=== PATIENT | female | born 1975 | race Caucasian/White ===

== ENCOUNTER 2017-10-08 15:17 | Emergency (ER) | payer SELFPAY ==
[~2017-10-08] VITALS: Ht 157.5 cm; Wt 65.8 kg
--- NOTE | 2017-10-08 15:17 | NUR ---
[facility]RA [employer] AND [employer] FROM HOME FOR SUICIDAL IDEATION, PT WANTED TO REMOVE HER PACEMAKER, ABOUT 4CM SUPERFICIAL CUT TO L CHEST WALL, NAD NOTED, VSS, PT PUT ON HOSPITAL GOWN AND MONITOR, WAITING FOR MD REYEZ
[2017-10-08] MEDS ORDERED: HALOPERIDOL LACTATE INJ 5 MG/ML VIAL IM ONE ×3 (15:30→18:30)
[2017-10-08] MEDS ORDERED: HALOPERIDOL LACTATE INJ 5 MG/ML VIAL ONE ×3 (15:33→18:31)
[2017-10-08 16:35] LABS: BASOPHILS # (AUTO) 0.1 /CMM (0.0-0.2); BASOPHILS % (AUTO) 0.5 % (0.0-2.0); EOSINOPHILS % (AUTO) 0.4 % (0.0-6.0); HEMATOCRIT 35 % (33-45); HEMOGLOBIN 11.7 g/dL (11.5-14.8); LYMPHOCYTES # (AUTO) 2.9 /CMM (0.8-4.8); MEAN CORPUSCULAR HEMOGLOBIN 30 PG (26.0-33.0); MEAN CORPUSCULAR HGB CONC 34 g/dl (31.0-36.0); MEAN CORPUSCULAR VOLUME 89 fL (82-100); MONOCYTES # (AUTO) 0.5 /CMM (0.1-1.30); MONOCYTES % (AUTO) 4.9 % (2.0-12.0); NEUTROPHILS # (AUTO) 6.9 /CMM (1.8-8.9); NEUTROPHILS % (AUTO) 66.2 % (43.0-81.0); PLATELET COUNT (AUTO) 403 /CMM (150-450); RDW COEFFICIENT OF VARIATION 13.8 (11.5-15.0); RED BLOOD CELL COUNT(AUTO) 3.89 MIL/uL (4.0-5.2); WHITE BLOOD COUNT (AUTO) 10.4 K/uL (4.3-11.0)
[2017-10-08 16:37] LABS: APPEARANCE,URINE Slightly Cloudy (CLEAR); BILIRUBIN,URINE Negative (NEGATIVE); BLOOD, URINE Negative Ery/uL (NEGATIVE); COLOR,URINE Light yellow (YELLOW); KETONES,URINE Negative (NEGATIVE); LEUKOCYTE ESTERASE ,URINE Negative (NEGATIVE); NITRITE, URINE Negative (NEGATIVE); PROTEIN,URINE Negative (NEGATIVE); UGLUCOSE Negative (NEGATIVE); UROBILINOGEN,URINE 0.2 EU/dL (0.2)
[2017-10-08 16:49] LABS: INR 0.94 (0.87-1.13); PROTHROMBIN TIME 9.8 SECS (9.5-12.7)
[2017-10-08 16:50] LABS: ALANINE AMINOTRANSFERASE 34 U/L (12-78); ALBUMIN 2.9 g/dL (3.4-5.0); ALCOHOL, BLOOD 296 mg/dL (0-0); ALKALINE PHOSPHATASE 55 U/L (46-116); ASPARTATE AMINOTRANSFERASE 34 U/L (15-37); BILIRUBIN,DIRECT 0.1 mg/dL (0.0-0.2); BILIRUBIN,TOTAL 0.2 mg/dL (0.2-1.0); CALCIUM, SERUM 8.1 mg/dL (8.5-10.1); CARBON DIOXIDE 26 mmol/L (21-32); CHLORIDE 109 mmol/L (98-107); CREATININE 0.8 mg/dL (0.6-1.3); GLUCOSE 105 mg/dL (74-106); POTASSIUM 3.4 mmol/L (3.5-5.1); SALICYLATE 4.6 mg/dL (2.8-20.0); SODIUM SERUM 144 mmol/L (136-145); TOTAL PROTEIN, SERUM 6.3 g/dL (6.4-8.2); UREA NITROGEN, BLOOD 7 mg/dL (7-18)
[2017-10-08 16:52] LABS: ACETAMINOPHEN < 2 ug/ml (10-30)
[2017-10-08] MEDS ORDERED: IV NS 0.9% 1,000 ML BAG IV ONE (17:00)
[2017-10-08 17:36] LABS: THYROID STIMULATING HORMONE 0.464 uIU/mL (0.358-3.74)
--- NOTE | 2017-10-08 18:30 | NUR ---
RECEIVED REPORT FROM ARMEN HUFF FOR MARISEL.
--- NOTE | 2017-10-08 19:07 | NUR ---
pt placed on a bedpan.
--- NOTE | 2017-10-08 20:07 | NUR ---
CALLED [employer] NON EMERGENCY DISPATCH. THEY WILL BE SENDING A UNIT.
--- NOTE | 2017-10-08 22:20 | NUR ---
Patient is resting comfortably in bed with eyes closed. Easily aroused. VSS
--- NOTE | 2017-10-09 03:05 | NUR ---
[employer] AT BEDSIDE FOR REPORT
--- NOTE | 2017-10-09 03:42 | NUR ---
Art, FINAL ASSEMBLY INSPECTOR called for psych eval.
[2017-10-09] MEDS ORDERED: ACETAMINOPHEN ES 500 MG TABLET ONE (04:41)
[2017-10-09] MEDS ORDERED: ACETAMINOPHEN 325 MG TABLET PO ONE (05:00)
--- NOTE | 2017-10-09 05:04 | NUR ---
ART AT BEDSIDE FOR EVAL.
--- NOTE | 2017-10-09 05:24 | NUR ---
PER ART PT CLEARED TO BE DC
--- NOTE | 2017-10-09 05:50 | NUR ---
DR. GOMEZ AT BEDSIDE SPEAKING TO PT REGARDING RESULTS
--- NOTE | 2017-10-09 05:52 | NUR ---
IV removed. Catheter intact and site benign. Pressure and 4x4 applied to site. No bleeding noted. Patient discharged to home in stable condition. Written and verbal after care instructions given. Patient verbalizes understanding of instruction. ambulatory with a steady gait. instructed not to drive. pt verbalize understanding.
[2017-10-09 05:54] VITALS: BP 116/68
== END 2017-10-09 05:55 | disposition home or self-care (01) ==
LOC: ER 15:19
DX: S21.112A Laceration without foreign body of left front wall of thorax without penetration into thoracic cavity, initial encounter (principal); R45.851 Suicidal ideations; F10.129 Alcohol abuse with intoxication, unspecified; R94.6 Abnormal results of thyroid function studies; R79.1 Abnormal coagulation profile; Z95.0 Presence of cardiac pacemaker; Y93.89 Activity, other specified; W26.0XXA Contact with knife, initial encounter; Y92.89 Other specified places as the place of occurrence of the external cause; Y99.8 Other external cause status
CPT/HCPCS: 12002; 36415; 71010; 80048; 80076; 80305; 80329; 81001; 84443; 84703; 85025; 85730; 93005; 96360; 96372 ×3; 99285; A4606 ×2; A6402; G0480 ×2; J1630 ×3; J7030; Z7610; 81000-TC

== ENCOUNTER 2018-01-11 17:59 | Emergency (ER) | payer OTHER ==
[~2018-01-11] VITALS: Ht 167.6 cm; Wt 61.2 kg
[2018-01-11 18:05] VITALS: BP 128/98
--- NOTE | 2018-01-11 20:17 | NUR ---
Patient eloped from facility. ER MD notified.
== END 2018-01-11 20:23 | disposition left against medical advice (07) ==
LOC: ER 18:00
DX: S50.01XA Contusion of right elbow, initial encounter (principal); Z95.0 Presence of cardiac pacemaker; W18.39XA Other fall on same level, initial encounter; Y93.89 Activity, other specified; Y92.89 Other specified places as the place of occurrence of the external cause; Y99.8 Other external cause status
CPT/HCPCS: 73080; 99284; A4606; Z7610

== ENCOUNTER 2018-04-06 00:04 | Emergency (ER) | payer MEDICAID, OTHER ==
[~2018-04-06] VITALS: Ht 165.1 cm; Wt 68.0 kg
--- NOTE | 2018-04-06 00:09 | NUR ---
PT BIB [facility] AND [employer] FOR OK TO BOOK. PT'S LEFT EYE IS EDEMATOUS, BRUISED, AND PAINFUL 10/10. PT IS IN BILATERAL HANDCUFFS. PT IS SCREEMING AND YELLING THAT JUAN C AND KACIE ARE LAUGHING AT HER. PT IS ON THE MONITOR AND CONTINUOUS PULSE OX. PT REC'D AN ICE PACK TO LEFT EYE.
--- NOTE | 2018-04-06 00:10 | NUR ---
DR. KNIGHT IS AT THE BEDSIDE EVALUATING THE PT.
[2018-04-06] MEDS ORDERED: ONDANSETRON 4 MG TAB.RAPDIS SL ONE ×2 (00:30→04:00)
[2018-04-06] MEDS ORDERED: HYDROCODONE/APAP 10/325MG 1 EA TABLET PO ONE (00:30)
[2018-04-06] MEDS ORDERED: LORAZEPAM 1 MG TABLET PO ONE (00:30)
--- NOTE | 2018-04-06 00:30 | NUR ---
PT REC'D AN ICE PACK TO THE LEFT EYE.
[2018-04-06] MEDS ORDERED: HYDROCODONE/APAP 10/325MG 1 EA TABLET ONE (00:35)
[2018-04-06] MEDS ORDERED: LORAZEPAM 1 MG TABLET ONE (00:36)
[2018-04-06] MEDS ORDERED: ONDANSETRON 4 MG TAB.RAPDIS ONE ×2 (00:36→04:02)
--- NOTE | 2018-04-06 00:47 | NUR ---
PT REC'D MEDICATION ORDERED.
--- NOTE | 2018-04-06 01:20 | NUR ---
PT REC'D AN ICE PACK TO THE LEFT EYE.
--- NOTE | 2018-04-06 01:55 | NUR ---
PT IN CT
[2018-04-06] MEDS ORDERED: HYDROCODONE/APAP 5/325MG 1 EACH TABLET ONE (02:12)
--- NOTE | 2018-04-06 02:18 | NUR ---
PT RETURNED FROM CT.
[2018-04-06] MEDS ORDERED: CEFTRIAXONE 500 MG VIAL ONE (02:19)
[2018-04-06] MEDS ORDERED: LIDOCAINE /MPF 1% VIAL 5 ML VIAL ONE (02:20)
[2018-04-06] MEDS ORDERED: AMOX/CLAVULANATE 875 MG TABLET ONE (02:20)
[2018-04-06] MEDS ORDERED: TDAP [DIPH/PERTUSSIS/TET] 0.5 ML VIAL IM ONE ×2 (02:20→02:30)
--- NOTE | 2018-04-06 02:20 | NUR ---
PT REC'D MEDICATION ORDERED.
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
[2018-04-06] MEDS ORDERED: CEFTRIAXONE 1 G VIAL IM ONE (02:30)
[2018-04-06] MEDS ORDERED: AMOX/CLAVULANATE 875 MG TABLET PO ONE (02:30)
[2018-04-06] MEDS ORDERED: HYDROCODONE/APAP 5/325MG 1 EACH TABLET PO ONE (02:30)
[2018-04-06] MEDS ORDERED: CEFTRIAXONE 1 G VIAL ONE (02:31)
--- NOTE | 2018-04-06 02:43 | NUR ---
XRAY IN PROGRESS AT THE BEDSIDE.
--- NOTE | 2018-04-06 02:44 | NUR ---
PT REC'D AN ICE PACK TO THE LEFT EYE.
--- NOTE | 2018-04-06 02:51 | NUR ---
REPORT GIVEN TO ARMEN XIONG FOR MARISEL.
--- NOTE | 2018-04-06 04:15 | NUR ---
PT OK TO DISCHARGE PER DR KNIGHT. Patient discharged in custody of [employer] in stable condition. Written and verbal after care instructions given. Patient verbalizes understanding of instruction. Patient is awake and alert to self, day, and place. Pt ambulatory with a steady gait.
[2018-04-06 04:40] VITALS: BP 145/75
== END 2018-04-06 04:15 ==
LOC: ER 00:10
DX: S05.12XA Contusion of eyeball and orbital tissues, left eye, initial encounter (principal); S61.258A Open bite of other finger without damage to nail, initial encounter; F10.129 Alcohol abuse with intoxication, unspecified; F41.9 Anxiety disorder, unspecified; F32.9 Major depressive disorder, single episode, unspecified; F15.10 Other stimulant abuse, uncomplicated; Z95.0 Presence of cardiac pacemaker; Y04.1XXA Assault by human bite, initial encounter; Y93.89 Activity, other specified; Y92.89 Other specified places as the place of occurrence of the external cause; Y99.8 Other external cause status
CPT/HCPCS: 36415; 70450-TC; 70486-TC; 72125-TC; 73140-TC; 84703-TC; 90715; A4606; G0480; J0696; J3490; Q0162; Z7610

== ENCOUNTER 2018-11-06 20:11 | Emergency (ER) | payer OTHER ==
[~2018-11-06] VITALS: Ht 185.4 cm; Wt 72.6 kg
--- NOTE | 2018-11-06 20:50 | NUR ---
TO ER BED 12 C/C RT AC PAIN DUE TO ABSCESS X 3 DAYS. AA/O X4. REDNESS AND SWELLING NOTED ON RT ARM. SKIN PINK, WARM, DRY. MOVES ALL EXTREMITIES WELL. AMBULATED TO BED WITH STABLE GAIT. PAIN 7/10, RADIATES TO RT SHOULDER. PT DENIES OF ANY OTHER COMPLAINTS. NAD. VSS. WILL CONTINUE TO MONITOR.
[2018-11-06] MEDS ORDERED: ACETAMINOPHEN 325 MG TABLET PO ONE (21:00)
[2018-11-06] MEDS ORDERED: SULFAMETH/TRIMETH 800/160 MG 1 UDTAB TABLET PO ONE ×2 (21:00→21:07)
[2018-11-06] MEDS ORDERED: LIDOCAINE HCL/PF 1% 30 ML SDV ONE (21:06)
[2018-11-06] MEDS ORDERED: ACETAMINOPHEN 325 MG TABLET ONE (21:07)
[2018-11-06] MEDS ORDERED: LIDOCAINE HCL/PF 1% 30 ML VIAL TP ONE (21:30)
--- NOTE | 2018-11-06 21:37 | NUR ---
RESTING IN BED COMFORTABLE WITH FAMILY AT BEDSIDE. STABLE CONDITION. VSS. NAD. WILL CONTINUE TO MONITOR.
[2018-11-06 21:40] VITALS: BP 110/72
== END 2018-11-06 21:52 | disposition home or self-care (01) ==
LOC: ER 20:17
DX: L02.413 Cutaneous abscess of right upper limb (principal); J44.9 Chronic obstructive pulmonary disease, unspecified; F41.9 Anxiety disorder, unspecified; F32.9 Major depressive disorder, single episode, unspecified; F41.0 Panic disorder [episodic paroxysmal anxiety]; Z95.0 Presence of cardiac pacemaker; Z98.890 Other specified postprocedural states; Z88.0 Allergy status to penicillin; Z88.1 Allergy status to other antibiotic agents; Z88.6 Allergy status to analgesic agent
CPT/HCPCS: A4606; A6402; J3490; Z7610

== ENCOUNTER 2021-02-27 02:36 | Inpatient (IN) | payer OTHER ==
[~2021-02-27] VITALS: Ht 185.4 cm; Wt 68.0 kg
--- NOTE | 2021-02-27 07:30 | NUR ---
RN OPENING NOTE PATIENT IS CURRENTLY IN BED WITH HOB AT SEMI FOWLERS POSITION. PATIENT IS AOX4. ON ROOM AIR WITH NO SIGNS OF LABORED BREATHING. RIGHT ANKLE CELLULITIS NOTED. LEFT WALL PACEMAKER AND DEFIB NOTED. RHAND AND RAC ARE PATENT AND INTACT. BED IS LOCKED IN THE LOWEST POSITION, 3 GUARD RAILS RAISED, CALL LOCKETT WITHIN REACH, AND ALL HOSPITAL SAFETY PRECAUTIONS ARE BEING FOLLOWED. WILL CONTINUE TO MONITOR THROUGHOUT SHIFT.
[2021-02-27 08:00] VITALS: BP 110/66
--- NOTE | 2021-02-27 08:09 | NUR ---
RN NOTE SPOKE WITH CASSIUS FROM [facility] IN REGARDS TO PATIENT'S LAB RESULT OF GRAM POS COCCI IN CHAINS.
[2021-02-27] MEDS ORDERED: ACET1TAB23 PO (08:29)
[2021-02-27] MEDS ORDERED: METH10TA2 PO (08:29)
[2021-02-27] MEDS ORDERED: CYCL10TA9 PO (08:29)
[2021-02-27] MEDS ORDERED: MAGNESIUM HYDROXIDE 30 ML UDC PO PRN (08:30)
[2021-02-27] MEDS ORDERED: ONDANSETRON HCL/PF 4 MG/2 ML VIAL IVP PRN (08:30)
[2021-02-27] MEDS ORDERED: ACETAMINOPHEN 325 MG TABLET PO PRN (08:30)
[2021-02-27] MEDS ORDERED: Z GUARD REMEDY 2 OZ OINT TP PRN (08:30)
[2021-02-27] MEDS ORDERED: MAG HYDROX/AL HYDROX/SIMETH 30 ML UDC PO PRN (08:30)
[2021-02-27] MEDS ORDERED: DOXYCYCLINE 100 MG in IV D5W 100 ML IV SCH (09:00)
--- NOTE | 2021-02-27 09:02 | NUR ---
WOUND CARE CONSULT: PT PRESENTS WITH CRACKED SKIN TO HEELS, RT LOWER LEG REDNESS AND DRAINING LESION TO RT POSTERIOR ANKLE, PRESENT ON ADMISSION. PT REFUSED FULL SKIN ASSESSMENT. RECOMMEND DPM CONSULT. DR RABAGO NOTIFIED OF CONSULT REQUEST. IN AGREEMENT WITH PLAN OF CARE.
[2021-02-27 09:06] LABS: BASOPHILS % (AUTO) 0.2 % (0.0-2.0); EOSINOPHILS % (AUTO) 0.5 % (0.0-6.0); HEMATOCRIT 27 % (33-45); HEMOGLOBIN 8.7 g/dL (11.5-14.8); LYMPHOCYTES # (AUTO) 1.5 /CMM (0.8-4.8); MEAN CORPUSCULAR HGB CONC 32 g/dl (31.0-36.0); MEAN CORPUSCULAR VOLUME 82 fL (82-100); MONOCYTES # (AUTO) 0.6 /CMM (0.1-1.30); MONOCYTES % (AUTO) 3.3 % (2.0-12.0); NEUTROPHILS # (AUTO) 17.1 /CMM (1.8-8.9); PLATELET COUNT (AUTO) 471 /CMM (150-450); WHITE BLOOD COUNT (AUTO) 19.5 K/uL (4.3-11.0)
[2021-02-27 09:15] LABS: ALANINE AMINOTRANSFERASE 26 U/L (12-78); ALBUMIN 2.1 g/dL (3.4-5.0); ALKALINE PHOSPHATASE 146 U/L (46-116); ASPARTATE AMINOTRANSFERASE 24 U/L (15-37); BILIRUBIN,DIRECT 0.1 mg/dL (0.0-0.2); BILIRUBIN,TOTAL 0.3 mg/dL (0.2-1.0); CALCIUM, SERUM 8.6 mg/dL (8.5-10.1); CARBON DIOXIDE 27 mmol/L (21-32); CHLORIDE 102 mmol/L (98-107); CREATININE 0.7 mg/dL (0.6-1.3); GLUCOSE 107 mg/dL (74-106); MAGNESIUM 1.8 mg/dL (1.8-2.4); PHOSPHORUS 4.1 mg/dL (2.5-4.9); POTASSIUM 3.6 mmol/L (3.5-5.1); SODIUM SERUM 135 mmol/L (136-145); TOTAL PROTEIN, SERUM 7.2 g/dL (6.4-8.2); UREA NITROGEN, BLOOD 7 mg/dL (7-18)
[2021-02-27] MEDS: IV NS 0.9% 1,000 ML IV PRN ×2 (09:23→22:02)
[2021-02-27] MEDS: HYDROCODONE/APAP 5/325MG TABLET PO PRN ×2 (11:00→17:18)
--- NOTE | 2021-02-27 12:30 | NUR ---
MRI APPROVED BY DR. FERNANDEZ. SAMPLE WASHER (ADAMS) NOTIFIED VIA TEXT.
[2021-02-27] MEDS ORDERED: GABA800T11 PO (14:41)
[2021-02-27 16:00] VITALS: BP 103/68
--- NOTE | 2021-02-27 17:25 | NUR ---
RN NOTE CONSENT OBTAINED FOR RIGHT ANKLE INCISION AND DRAINAGE.
[2021-02-27] MEDS ORDERED: ACETAMINOPHEN W/ CODEINE#3 1 EA TABLET PO PRN (17:30)
--- NOTE | 2021-02-27 18:52 | NUR ---
RN CLOSING NOTE PATIENT IS CURRENTLY IN BED WITH HOB AT SEMI FOWLERS POSITION. PATIENT IS AOX4. ON ROOM AIR WITH NO SIGNS OF LABORED BREATHING. RIGHT ANKLE CELLULITIS KEPT CLEAN AND LEFT OPEN TO AIR. LEFT WALL PACEMAKER AND DEFIB NOTED. RHAND AND RAC ARE PATENT AND INTACT. BED IS LOCKED IN THE LOWEST POSITION, 3 GUARD RAILS RAISED, CALL LOCKETT WITHIN REACH, AND ALL HOSPITAL SAFETY PRECAUTIONS ARE BEING FOLLOWED. ALL DUE MEDS GIVEN AND PATIENT REMAINED STABLE THROUGHOUT SHIFT. WILL ENDORSE TO STEAM BOILER FIREMAN RN.
[2021-02-27 19:34] LABS: BILIRUBIN,URINE NEGATIVE (NEGATIVE); COLOR,URINE YELLOW (YELLOW); LEUKOCYTE ESTERASE ,URINE NEGATIVE (NEGATIVE); NITRITE, URINE NEGATIVE (NEGATIVE); PH,URINE 7.5 (5.0-8.0); PROTEIN,URINE NEGATIVE (NEGATIVE); UGLUCOSE NEGATIVE (NEGATIVE); UROBILINOGEN,URINE 0.2 EU/dL (0.2)
[2021-02-27 20:00] VITALS: BP 102/64
[2021-02-27] MEDS: METHADONE HCL 10 MG TABLET PO PRN (20:25)
[2021-02-27] MEDS: DAPTOMYCIN 500 MG in IV NS 0.9% 50 ML IV SCH (21:15)
[2021-02-27] MEDS: MEROPENEM 500 MG in IV NS 0.9% 50 ML IV SCH (21:58)
--- NOTE | 2021-02-28 00:09 | NUR ---
report given to PATRICIA FOR MARISEL.
[2021-02-28 01:10] VITALS: BP 102/64
[2021-02-28] MEDS: HYDROCODONE/APAP 5/325MG TABLET PO PRN ×2 (03:25→10:00)
[2021-02-28] MEDS: MEROPENEM 500 MG in IV NS 0.9% 50 ML IV SCH ×3 (04:12→20:57)
[2021-02-28 05:35] VITALS: BP 108/73
[2021-02-28] MEDS: METHADONE HCL 10 MG TABLET PO PRN ×3 (05:45→20:56)
[2021-02-28 06:50] LABS: BASOPHILS # (AUTO) 0.1 /CMM (0.0-0.2); BASOPHILS % (AUTO) 0.4 % (0.0-2.0); EOSINOPHILS % (AUTO) 1.2 % (0.0-6.0); HEMATOCRIT 26 % (33-45); HEMOGLOBIN 8.3 g/dL (11.5-14.8); LYMPHOCYTES # (AUTO) 1.9 /CMM (0.8-4.8); LYMPHOCYTES % (AUTO) 15.3 % (20.0-44.0); MEAN CORPUSCULAR HGB CONC 32 g/dl (31.0-36.0); MEAN CORPUSCULAR VOLUME 81 fL (82-100); MONOCYTES % (AUTO) 8.2 % (2.0-12.0); NEUTROPHILS # (AUTO) 9.1 /CMM (1.8-8.9); NEUTROPHILS % (AUTO) 74.9 % (43.0-81.0); PLATELET COUNT (AUTO) 475 /CMM (150-450); RED BLOOD CELL COUNT(AUTO) 3.16 MIL/uL (4.0-5.2); WHITE BLOOD COUNT (AUTO) 12.2 K/uL (4.3-11.0)
--- NOTE | 2021-02-28 06:56 | NUR ---
RN NOTES PT ALERTS AND ORIENTED X 4 PT REPORTS CONSTANT PAIN AND DISCOMFORT ON THE RIGHT ANKLE PAIN MANAGEMENT PROVIDED METHADONE 10 MG GIVEN @ 0545. PT ON ROOM AIR TOLERATING WELL. PT HAS IV ACCESS ON THE RIGHT AC AND RIGHT HAND RUINING NS 75ML/HR. NO PAIN SWELLING OR REDNESS NOTED AT IV SITE. ALL NURSING NEEDS MET. ALL DUE MEDICATIONS GIVEN AND TOLERATED WELL. CALL LIGHT WITHIN REACH WILL ENDORSE CARE TO DAY SHIFT NURSE.
--- NOTE | 2021-02-28 07:30 | NUR ---
MS RN OPENING NOTES RECEIVED PATIENT LYING IN BED, RESTING. SEMI FOWLERS POSITION. PATIENT IS A/O X4. ON ROOM AIR - TOLERATING WELL. RIGHT ANKLE/LEG CELLULITIS NOTED. LEFT WALL PACEMAKER AND DEFIB NOTED. IV ACCESS IN R HAND AND R AC ARE PATENT AND INTACT - RUNNING NS @ 75ML/HR. BED IS LOCKED AND IN LOWEST POSITION, SIDE RAILS X2. CALL LIGHT WITHIN REACH. SAFETY PRECAUTIONS IN PLACE. WILL CONTINUE TO MONITOR.
[2021-02-28 07:35] LABS: CALCIUM, SERUM 8.1 mg/dL (8.5-10.1); CREATININE 0.6 mg/dL (0.6-1.3); MAGNESIUM 1.9 mg/dL (1.8-2.4); PHOSPHORUS 3.3 mg/dL (2.5-4.9); POTASSIUM 3.5 mmol/L (3.5-5.1)
[2021-02-28 08:22] LABS: THYROID STIMULATING HORMONE 0.203 uIU/mL (0.358-3.74)
[2021-02-28] MEDS: PANTOPRAZOLE 40 MG TABLET.DR PO SCH (08:29)
[2021-02-28] MEDS: CYCLOBENZAPRINE 10 MG TABLET PO SCH ×3 (08:29→17:25)
[2021-02-28 12:00] VITALS: BP 108/73
[2021-02-28] MEDS: IV NS 0.9% 1,000 ML IV PRN (16:48)
[2021-02-28] MEDS ORDERED: IV NS 0.9% 500 ML IV ONE (17:00)
[2021-02-28] MEDS: GABAPENTIN 400 MG CAPSULE PO SCH (17:39)
--- NOTE | 2021-02-28 18:45 | NUR ---
RN CLOSING NOTE PATIENT CURRENTLY LYING IN BED, AWAKE, WATCHING TV. PATIENT IS A/O X4. ON ROOM AIR - TOLERATING WELL. NO SIGNS OF RESPIRATORY DISTRESS NOTED. RIGHT ANKLE CELLULITIS KEPT CLEAN AND LEFT OPEN TO AIR. RIGHT LEG ELEVATED WITH PILLOW AND ICE PACK. LEFT WALL PACEMAKER AND DEFIB NOTED. R HAND AND R AC ARE PATENT AND INTACT - RUNNING NS @ 100ML/HR. BED IS LOCKED AND IN LOWEST POSITION, SIDE RAILS X3. CALL LIGHT WITHIN REACH. WILL ENDORSE TO TOWEL ROLLING MACHINE OPERATOR NURSE FOR MARISEL.
[2021-02-28 20:00] VITALS: BP 110/70
[2021-02-28] MEDS: DAPTOMYCIN 500 MG in IV NS 0.9% 50 ML IV SCH (20:56)
[2021-02-28] MEDS: ZOLPIDEM TARTRATE 5 MG TABLET PO PRN (20:56)
[2021-03-01] MEDS: HYDROCODONE/APAP 5/325MG TABLET PO PRN ×2 (02:15→14:43)
[2021-03-01 04:00] VITALS: BP 94/50
[2021-03-01] MEDS: IV NS 0.9% 1,000 ML IV PRN (05:13)
[2021-03-01] MEDS: MEROPENEM 500 MG in IV NS 0.9% 50 ML IV SCH ×3 (05:14→20:42)
--- NOTE | 2021-03-01 05:42 | NUR ---
RN notes In bed moaning with facial grimace. complaining of pain of right lower ankle. Noted with open area redness and swelling. No respiratory distress, On room air, tolerating well. Methadone and [place] given with slight relief. Wound culture and sensitivity test ordered, specimen taken and given to lab. Waiting for result. Alert and oriented x 4, ambulatory. Able to verbalize needs. Kept clean and dry. Will have a procedure scheduled at 07:30 03/01/21 for excissional debridement and dranaige of right medial ankle. Kept clean and dry. Will endorse to next shift for continuity of care.
--- NOTE | 2021-03-01 06:04 | NUR ---
SLATE SPLITTING SUPERVISOR RIGHT FOOT AND ANKLE WOUND TREATMENT ORDERS CLARIFIED WITH DPM DR RABAGO. DISCUSSED WITH PRIMARY NURSE.
[2021-03-01 06:26] LABS: BASOPHILS % (AUTO) 0.4 % (0.0-2.0); EOSINOPHILS % (AUTO) 3.8 % (0.0-6.0); HEMATOCRIT 27 % (33-45); HEMOGLOBIN 8.8 g/dL (11.5-14.8); LYMPHOCYTES # (AUTO) 2.1 /CMM (0.8-4.8); LYMPHOCYTES % (AUTO) 24.9 % (20.0-44.0); MEAN CORPUSCULAR HGB CONC 33 g/dl (31.0-36.0); MEAN CORPUSCULAR VOLUME 82 fL (82-100); MONOCYTES # (AUTO) 0.7 /CMM (0.1-1.30); MONOCYTES % (AUTO) 8.5 % (2.0-12.0); NEUTROPHILS # (AUTO) 5.2 /CMM (1.8-8.9); NEUTROPHILS % (AUTO) 62.4 % (43.0-81.0); PLATELET COUNT (AUTO) 508 /CMM (150-450); RED BLOOD CELL COUNT(AUTO) 3.24 MIL/uL (4.0-5.2); WHITE BLOOD COUNT (AUTO) 8.4 K/uL (4.3-11.0)
[2021-03-01 06:55] LABS: CALCIUM, SERUM 7.7 mg/dL (8.5-10.1); CREATININE 0.7 mg/dL (0.6-1.3); MAGNESIUM 1.7 mg/dL (1.8-2.4); PHOSPHORUS 3.9 mg/dL (2.5-4.9); POTASSIUM 3.8 mmol/L (3.5-5.1)
[2021-03-01] MEDS ORDERED: LIDOCAINE HCL/MPF 1% 30 ML VIAL IJ ONE (07:05)
[2021-03-01] MEDS ORDERED: ANESTHESIA TRAY IN PYXIS 1 EA TRAY MC ONE (07:05)
[2021-03-01] MEDS ORDERED: BUPIVACAINE 0.5 % PF 150 MG/30 ML VIAL ONE (07:05)
--- NOTE | 2021-03-01 07:25 | NUR ---
RN OPENING NOTES PATIENT PICKED UP BY OR TEAM, WENT TO SURGERY
[2021-03-01] MEDS: PANTOPRAZOLE 40 MG TABLET.DR PO SCH (07:26)
--- NOTE | 2021-03-01 07:56 | NUR ---
surgery didn't performed, back to room
[2021-03-01] MEDS: METHADONE HCL 10 MG TABLET PO PRN ×4 (08:14→19:02)
[2021-03-01] MEDS: GABAPENTIN 400 MG CAPSULE PO SCH ×3 (08:47→16:57)
[2021-03-01] MEDS: CYCLOBENZAPRINE 10 MG TABLET PO SCH ×3 (08:47→16:57)
--- NOTE | 2021-03-01 09:28 | NUR ---
Patient took to OR, however per britt Colon for surgery, Ok per Dr Venegas as well
[2021-03-01] MEDS ORDERED: FENTANYL PF 100MCG/2ML AMPUL ONE ×2 (09:37→10:52)
[2021-03-01] MEDS ORDERED: MIDAZOLAM HCL 2 MG/2ML VIAL ONE (09:38)
[2021-03-01] MEDS ORDERED: ROCURONIUM BROMIDE 50 MG/5 ML ONE (09:38)
[2021-03-01] MEDS: Magnesium 1GM/D5W 100ML PREMIX 100 ML IV SCH ×4 (10:00→16:57)
--- NOTE | 2021-03-01 11:45 | NUR ---
BACK FROM SURGERY, A/OX4, ON ROOM AIR, SPO2 IS 99%, NO ACUTE DISTRESS NOTED, DRESSING ON RIGHT ANKLE NOTED, INTACT, PATENT, PROVIDED WITH FLUIDS, BED LOCKED, IN LOWEST POSITION, CALL LIGHT IN REACH, WILL CONT MONITOR VS STABLE TEMP 97.5 PULSE 91 RR 20 SPO2 99% BP 100/64
--- NOTE | 2021-03-01 11:59 | NUR ---
FAX FROM [facility], PLACED IN CHART
--- NOTE | 2021-03-01 14:26 | NUR ---
"Social Service Consult: counseling services director consult requested for homelessness. Patient is a 41-year-old, female. SW met with the patient at her hospital bed in the med-surg unit Patient is alert and oriented x4. Patient expressed being in pain as evidenced by her statement, I just got out of surgery and Im in pain, but was still willing to meet with this social media marketing manager. Patient was brought into the hospital on 02/27/2021 for sepsis. Patient stated that she is currently living at [facility] ([address] [place] [address]; [phone]) and feels that she may not have enough finances to continue to pay for this living arrangement for much longer. Patient is currently receiving food stamps and General Relief. Patient denies any history of substance use. SW asked patient if she has a history of mental illness and patient stated Anxiety. Patient stated she is not experiencing suicidal or homicidal ideations. SW discussed discharge plans with the patient, and patient stated that at this time she will return to her prior living arrangements, but that she will investigate shelters from the resource packet that was provided. SW offered homeless resources to the patient. Patient thanked this SW and accepted the resources. Patient signed the homeless waiver and SW filed the waiver in the patients chart. PLAN: Patient to return to her prior living arrangements. No further SS interventions needed at this time however, SW will remain available as needed. Year-round shelters: [facility] [address] [place], [place] [phone] ; [facility] [place] [address] [place] [address]; [facility] [id number] [facility] [address] SPA 4 | [facility] Provider: [facility] Address: [address], [address] # of Beds: 48 Population Served: [facility] Provider: [facility] Serve Address: [address] [facility], [address] # of Beds: 73 Population Served: [facility] 6 | [facility] Provider: [facility] Address: [address] [facility], [address] # of Beds: 63 Population Served: [facility] SPA 3 | [facility] Provider: [facility] [place] Address: [address] [facility], [place], [address] # of Beds: 75 Population Served: [facility] [place] 8 | [facility] Provider: [facility] [place] Address: [address] [facility], [address] # of Beds: 80 Population Served: [facility] S[place] 1 | [facility] Provider: [facility] [place] Address: [address] [place] [address], [address] # of Beds: 85 Population Served: [facility] 2 | [facility] Provider: Laura dhillon [facility] Address: Confidential (please call for location) # of Beds: 52 Population Served: [facility] 4 | [facility] Provider: [facility] Address: [address] [place] [address], [facility] # of Beds: 49 Population Served: [facility] Provider: [facility] To Serve Address: [address] [place] [address] # of Beds: 27 Population Served: [facility] Hygiene: [facility] [address] [facility] ; [facility] [address] [facility] ; [facility] [address] [facility] . Food Resources: [place] [employer] [facility] at [facility]- [address] [facility]; Meet Each Need with [facility] ([facility]) [address] [facility]; [facility] Food Pant[facility] [address] [facility]; [facility] [address] [place] [facility] [place]. Mental Health resources provided: [facility] [address] , [place], [place] [id number] ; [facility] [address] [facility] [address], [place], [place] [phone] ; [facility] Mental [facility] [address] [facility] [address] [place], [place] [phone] ; [facility] [address] [place], [place] [address] Healthcare Clinics: [facility] [address] [facility], [address] [place]. [place] ; [facility] [address] [facility] [address] [place] [address]; [facility] [address] [place] [address] [phone]) [phone] Counseling--Outpatient [facility] [address] [facility], [place] [address] (Specializes in in-depth psychotherapy for emotional distress: anxiety, depression, interpersonal conflicts, life transitions, childhood abuse) [facility] [address] [place] [address] (Assist with solving problem marital difficulties, separation & divorce, aging parents, & grief, chronic & terminal illness) PSYCHIATRIC OUTPATIENT SERVICES [facility] Partial Hospitalization and Intensive Outpatient Program (Managed Care and [place] Only) [address] [facility] 688[address] [facility] Partial Hospitalization and Outpatient Program [address] [place] [address] [facility] Partial Hospitalization and Outpatient Program [address] [facility]. [place], [place] [phone] Formerly [facility] [place] [facility] [address] [facility]. [address] [place] [address] [facility] Partial Hospitalization and Outpatient Program [address] [place], [place] [phone] "
[2021-03-01] MEDS ORDERED: Magnesium 1GM/D5W 100ML PREMIX PIGGYBACK IV ONE (14:30)
[2021-03-01 16:00] VITALS: BP 105/65
--- NOTE | 2021-03-01 18:42 | NUR ---
REMAINS IN ROOM, STABLE, MEDICATIONS, FLUIDS AND MEALS PROVIDED, ASSISTED WITH BATHROOM, CLEANED, SAFETY MEASURES IMPLEMENTED, WILL ENDORSE TO PM SHIFT RN FOR MARISEL
--- NOTE | 2021-03-01 19:30 | NUR ---
MS/RN OPENING NOTES RECEIVED PATIENT IN BED RESTING. PATIENT IS ALERT AND ORIENTED X 4. PATIENT BREATHING IS EVEN AND UNLABORED. NO SIGNS OF SOB OR RESPIRATORY DISTRESS NOTED. PATIENT IV ACCESS INTACT FLUSHING WELL. SAFETY MEASURES ARE IN PLACE, BED IS LOCKED AND PLACED IN THE LOWEST POSITION, CALL LIGHT IS WITHIN REACH, WILL CONTINUE WITH PATIENT PLAN OF CARE.
[2021-03-01] MEDS: DAPTOMYCIN 500 MG in IV NS 0.9% 50 ML IV SCH (21:00)
[2021-03-02] MEDS: HYDROCODONE/APAP 5/325MG TABLET PO PRN ×4 (00:17→23:34)
--- NOTE | 2021-03-02 00:17 | NUR ---
MS/RN NOTES PATIENT COMPLAINING OF PAIN AT RIGHT FOOT. PATIENT GIVEN NORCO 5 MG PO. V/S ARE STABLE.
[2021-03-02 04:00] VITALS: BP 92/57
--- NOTE | 2021-03-02 04:45 | NUR ---
MS/RN NOTES PATIENT COMPLAINING OF PAIN AT RIGHT FOOT. PATIENT GIVEN NORCO 5 MG PO. V/S ARE STABLE.
[2021-03-02] MEDS: MEROPENEM 500 MG in IV NS 0.9% 50 ML IV SCH ×4 (05:01→23:30)
[2021-03-02] MEDS: IV NS 0.9% 1,000 ML IV PRN ×2 (05:10→23:28)
[2021-03-02 06:22] LABS: BASOPHILS # (AUTO) 0.1 /CMM (0.0-0.2); BASOPHILS % (AUTO) 0.5 % (0.0-2.0); EOSINOPHILS % (AUTO) 0.1 % (0.0-6.0); HEMATOCRIT 26 % (33-45); HEMOGLOBIN 8.3 g/dL (11.5-14.8); LYMPHOCYTES # (AUTO) 1.6 /CMM (0.8-4.8); LYMPHOCYTES % (AUTO) 11.2 % (20.0-44.0); MEAN CORPUSCULAR HGB CONC 33 g/dl (31.0-36.0); MEAN CORPUSCULAR VOLUME 82 fL (82-100); MONOCYTES # (AUTO) 0.8 /CMM (0.1-1.30); NEUTROPHILS # (AUTO) 11.4 /CMM (1.8-8.9); NEUTROPHILS % (AUTO) 82.2 % (43.0-81.0); PLATELET COUNT (AUTO) 571 /CMM (150-450); RED BLOOD CELL COUNT(AUTO) 3.11 MIL/uL (4.0-5.2); WHITE BLOOD COUNT (AUTO) 13.9 K/uL (4.3-11.0)
--- NOTE | 2021-03-02 06:35 | NUR ---
MS/RN CLOSING NOTES PATIENT IN BED SLEEPING EASY TO AROUSE . PATIENT IS ALERT AND ORIENTED X 4. PATIENT BREATHING IS EVEN AND UNLABORED. NO SIGNS OF SOB OR RESPIRATORY DISTRESS NOTED. PATIENT IV ACCESS INTACT FLUSHING WELL RUNNING NS AT 100 CC/HR. RIGHT FOOT DRESSING CLEAN AND INTACT, NO SIGNS OF ACTIVE BLEEDING. ALL NEEDS HAVE BEEN MET DURING SHIFT. SAFETY MEASURES ARE IN PLACE, BED IS LOCKED AND PLACED IN THE LOWEST POSITION, CALL LIGHT IS WITHIN REACH, WILL ENDORSE CARE TO DAY SHIFT NURSE.
--- NOTE | 2021-03-02 07:30 | NUR ---
RN OPENING NOTES PATIENT PRESENT IN BED, AWAKE, A/OX4, ON ROOM AIR, SATURATING 100%, SURGICAL DRESSING ON R LEG INTACT, NO S/SX OF SWELLING OR BLEEDING NOTED, FULL SENSATION NOTED, IV LINE CHECKED, FLUSHED, BOT INTACT, SAFETY MEASURES IN PLACE, HOB ELEVATED, BED LOCKED, IN LOWEST POSITION, HOB ELEVATED, WILL CONT TO MONITOR
[2021-03-02] MEDS: PANTOPRAZOLE 40 MG TABLET.DR PO SCH (07:36)
[2021-03-02 07:54] LABS: CALCIUM, SERUM 8.5 mg/dL (8.5-10.1); CREATININE 0.6 mg/dL (0.6-1.3); MAGNESIUM 2.1 mg/dL (1.8-2.4); PHOSPHORUS 4.1 mg/dL (2.5-4.9); POTASSIUM 4.3 mmol/L (3.5-5.1)
[2021-03-02 08:00] VITALS: BP 101/65
[2021-03-02] MEDS: METHADONE HCL 10 MG TABLET PO PRN ×3 (08:35→20:56)
[2021-03-02] MEDS: GABAPENTIN 400 MG CAPSULE PO SCH ×3 (08:35→17:47)
[2021-03-02] MEDS: CYCLOBENZAPRINE 10 MG TABLET PO SCH ×3 (08:35→17:48)
[2021-03-02] MEDS: MUPIROCIN OINT 2% 22 GM TUBE TP SCH (09:23)
--- NOTE | 2021-03-02 09:50 | NUR ---
WOUND CARE DONE ACCORDING TO ORDER FOR BOTH LEGS
--- NOTE | 2021-03-02 12:50 | NUR ---
RN NOTES PT COMPLAINED OF PAIN. 05/25 ON RIGHT FOOT AND ANKLE. NORCO PRN 1 TAB GIVEN.
[2021-03-02 16:00] VITALS: BP 97/57
--- NOTE | 2021-03-02 19:01 | NUR ---
RN CLOSING NOTES REMAINS IN ROOM, STABLE, INFORMED MD AND COGENERATION OPERATOR ABOUT IV, PLACED ORDER FOR MIDLINE INSERTION, MEDICATIONS GIVEN, COMFORT NEEDS ATTENDED, WILL ENDORSE TO PM SHIFT RN FOR MARISEL
[2021-03-02 20:00] VITALS: BP 98/63
[2021-03-02] MEDS: ZOLPIDEM TARTRATE 5 MG TABLET PO PRN (20:56)
[2021-03-02] MEDS: DAPTOMYCIN 500 MG in IV NS 0.9% 50 ML IV SCH ×2 (21:00→23:30)
[2021-03-03 04:00] VITALS: BP 107/70
--- NOTE | 2021-03-03 04:53 | NUR ---
RN notes In bed, awake with no distress noted. Breathing even and unlabored. Room air well tolerated. Alert and oriented x 4. Able to verbalize needs. Complained of pain, right ankle wound, methadone and norco, with slight relief. Requested sleeping pill, ambien given, effective. Vital signs wnl. For midline insertion, right hand PIV line inserted. Good back flow noted, procedure well tolerated. Kept clean and dry. Will continue to monitor.
[2021-03-03] MEDS: MEROPENEM 500 MG in IV NS 0.9% 50 ML IV SCH ×3 (05:40→20:45)
[2021-03-03] MEDS: PANTOPRAZOLE 40 MG TABLET.DR PO SCH (07:57)
[2021-03-03 08:00] VITALS: BP 114/74
--- NOTE | 2021-03-03 08:00 | NUR ---
JAVASCRIPT SOFTWARE ENGINEER OPENING NOTES RECEIVED PT ON BED, AAOX4, RESPONSIVE TO ALL STIMULI. RESPIRATION EVEN AND NON LABORED WITH NO ACUTE RESPIRATORY DISTRESS, ON RA. ABD SOFT AND NON DISTENDED WITH ACTIVE BOWEL SOUNDS. C/O GENERALIZED PAIN, CHRONIC CONDITION. SKIN WARM TO TOUCH AND DRY. RIGHT LEG ELEVATED SECONDARY TO CELLULITIS, DRESSING CLEAN, INTACT AND DRY. IV SITE AT RIGHT HAND #24, PATENT IN FLUSHING, NO S/SX OF INFILTRATION, IVF NS @ 100 CC/HR. ALL CONCERNS ATTENDED. BED IN LOW LOCKED POSITION, CALL LIGHT WITHIN REACHED, SRX2 UP FOR SAFETY. WILL CONT TO MONITOR CARE.
[2021-03-03] MEDS: MUPIROCIN OINT 2% 22 GM TUBE TP SCH (08:09)
[2021-03-03] MEDS: GABAPENTIN 400 MG CAPSULE PO SCH ×3 (08:09→16:27)
[2021-03-03] MEDS: CYCLOBENZAPRINE 10 MG TABLET PO SCH ×3 (08:09→16:27)
[2021-03-03] MEDS: IV NS 0.9% 1,000 ML IV PRN ×2 (10:27→21:38)
[2021-03-03] MEDS: HYDROCODONE/APAP 5/325MG TABLET PO PRN (11:48)
[2021-03-03] MEDS: METHADONE HCL 10 MG TABLET PO PRN ×3 (13:06→20:36)
[2021-03-03 16:00] VITALS: BP 106/73
[2021-03-03 16:35] VITALS: BP 106/73
--- NOTE | 2021-03-03 18:55 | NUR ---
M/S RN CLOSING NOTES PT AAOX4, ON RA 96-100%, NO PRESENCE OF ACUTE RESPIRATORY DISTRESS. NO NEW SKIN BREAKDOWN. PT HAS CHRONIC PAIN MANAGED BY CURRENT PAIN MEDICATION. BM TODAY. IV SITE AT RIGHT HAND #24 PATENT IN FLUSHING, NO S/SX OF INFILTRATION, RIGHT UPPER MIDLINE #18, IVF NS@ 100 ML/HR. NO NEW SKIN BREAKDOWN REPORTED. ALL CONCERNS ATTENDED. BED KEPT IN LOW LOCKED POSITION, SRX2 UP FOR SAFETY, HOB ELEVATED POSITION. ALL CARE ATTENDED. ENDORSED CARE TO NEXT SHIFT.
--- NOTE | 2021-03-03 19:50 | NUR ---
RN NOTE PATIENT ALERT AND ORIENTED X4, ABLE TO MAKE NEEDS KNOWN. ON ROOM AIR, NO SOB OR ANY RESPIRATORY DISTRESS. WITH RIGHT HAND #24 AND RIGHT UPPER ARM MIDLINE #18 PATENT IN FLUSHING, NO S/S OF INFILTRATION. SKIN WARM TO TOUCH AND DRY. ALL NEEDS ANTICIPATED. SAFETY MEASURES IMPLEMENTED. CALL LIGHT WITHIN REACH. WILL CONTINUE TO MONITOR.
[2021-03-03] MEDS: ZOLPIDEM TARTRATE 5 MG TABLET PO PRN (21:30)
[2021-03-04 04:00] VITALS: BP 105/69
[2021-03-04] MEDS: MEROPENEM 500 MG in IV NS 0.9% 50 ML IV SCH ×3 (04:14→20:15)
[2021-03-04] MEDS: HYDROCODONE/APAP 5/325MG TABLET PO PRN (04:46)
[2021-03-04 05:53] LABS: BASOPHILS # (AUTO) 0.1 /CMM (0.0-0.2); BASOPHILS % (AUTO) 0.9 % (0.0-2.0); EOSINOPHILS % (AUTO) 1.9 % (0.0-6.0); HEMATOCRIT 26 % (33-45); HEMOGLOBIN 8.5 g/dL (11.5-14.8); LYMPHOCYTES # (AUTO) 2.4 /CMM (0.8-4.8); LYMPHOCYTES % (AUTO) 32.8 % (20.0-44.0); MEAN CORPUSCULAR HGB CONC 33 g/dl (31.0-36.0); MEAN CORPUSCULAR VOLUME 81 fL (82-100); MONOCYTES # (AUTO) 0.7 /CMM (0.1-1.30); MONOCYTES % (AUTO) 9.5 % (2.0-12.0); NEUTROPHILS % (AUTO) 54.9 % (43.0-81.0); PLATELET COUNT (AUTO) 577 /CMM (150-450); RED BLOOD CELL COUNT(AUTO) 3.22 MIL/uL (4.0-5.2); WHITE BLOOD COUNT (AUTO) 7.3 K/uL (4.3-11.0)
[2021-03-04 06:08] LABS: CALCIUM, SERUM 8.2 mg/dL (8.5-10.1); CREATININE 0.7 mg/dL (0.6-1.3); MAGNESIUM 1.6 mg/dL (1.8-2.4); PHOSPHORUS 4.6 mg/dL (2.5-4.9)
--- NOTE | 2021-03-04 06:55 | NUR ---
RN NOTE PATIENT ALERT AND ORIENTED X4. ON ROOM AIR, NO SOB OR ANY RESPIRATORY DISTRESS. WITH RIGHT HAND #24 AND RIGHT UPPER ARM MIDLINE #18 WITH IV NS @ 100ML/S HR RUNNING, NO S/S OF INFILTRATION. ALL NEEDS ANTICIPATED. SAFETY MEASURES IMPLEMENTED. CALL LIGHT WITHIN REACH. WILL ENDORSE TO AM SHIFT.
--- NOTE | 2021-03-04 07:30 | NUR ---
MS ARMEN AM NOTES RECEIVED PT ON BED, AAOX4, ON ROOM AIR, O2 SAT AT 96%. RESPONSIVE TO ALL STIMULI. RESPIRATION EVEN AND UNLABORED WITH NO ACUTE RESPIRATORY DISTRESS, C/O GENERALIZED PAIN [CHRONIC] ON MOVEMENT/ACTIVITY, RELIEVED BY PAIN MEDICATION. IV SITE AT RIGHT HAND #24 AN AVI MIDLINE G 18 WITH NS A T 100 ML/HR INFUSING WELL, BOTH SITES CLEAR. SKIN WARM TO TOUCH AND DRY. RIGHT LEG ELEVATED SECONDARY TO CELLULITIS, DRESSING CLEAN, INTACT AND DRY. S/P DEBRIDEMENT OF WOUND ON 03/01/21. CARDIAC DIET. BED IN LOW LOCKED POSITION, CALL LIGHT WITHIN REACHED, SRX2 UP FOR SAFETY. ALL NEEDS ANTICIPATED. WILL CONT TO MONITOR CARE.
[2021-03-04 08:00] VITALS: BP 100/66
[2021-03-04] MEDS: PANTOPRAZOLE 40 MG TABLET.DR PO SCH (08:05)
[2021-03-04] MEDS: MUPIROCIN OINT 2% 22 GM TUBE TP SCH (08:31)
[2021-03-04] MEDS: GABAPENTIN 400 MG CAPSULE PO SCH ×3 (08:31→16:47)
[2021-03-04] MEDS: CYCLOBENZAPRINE 10 MG TABLET PO SCH ×3 (08:31→16:47)
[2021-03-04] MEDS: IV NS 0.9% 1,000 ML IV PRN (08:43)
--- NOTE | 2021-03-04 09:30 | NUR ---
RN NOTES DUE MEDS GIVEN
[2021-03-04] MEDS: Magnesium 1GM/D5W 100ML PREMIX 100 ML IV SCH ×2 (10:33→11:37)
[2021-03-04] MEDS ORDERED: SULF1TAB48 PO (11:31)
[2021-03-04] MEDS ORDERED: FLUC200T PO (11:31)
[2021-03-04] MEDS ORDERED: ACET325T53 PO (11:31)
--- NOTE | 2021-03-04 14:04 | NUR ---
RN NOTES SPOKE WITH GUSTAVO ADRIAN OUTSIDE UPHOLSTERER RE PATIENT WITH DISCHARGE ORDERS ONCE CLEARED BY SHUTDOWN COORDINATOR. PER GUSTAVO ADRIAN, TO CALL CATERING ASSISTANT WHERE PATIENT IS GONNA GO. SPOKE WITH FREIDA CATERING ASSISTANT, ACCRORDING TO HER, PATIENT WAS GIVEN RESOURCES FOR INTERMEDIATE, AND PATIENT CAME FROM AN [facility]" AND WANTS TO GO BACK THERE. HOMELESS WAIVER SIGNED.
--- NOTE | 2021-03-04 15:05 | NUR ---
RN NOTES PER [place] [facility], HOLD DC ORDERS. DISCONTINUE NORCO 5/325 AND TYLENOL - COD #3
[2021-03-04 16:00] VITALS: BP_SYST 125; BP_SYST 91; BP_DIAS 61; BP_DIAS 91
--- NOTE | 2021-03-04 18:56 | NUR ---
MS RN NOTE PATIENT ALERT AND ORIENTED X4. ON ROOM AIR, NO SOB OR ANY RESPIRATORY DISTRESS. WITH RIGHT HAND #24 AND RIGHT UPPER ARM MIDLINE #18 WITH IV NS @ 100ML/S HR RUNNING, NO S/S OF INFILTRATION. ALL NEEDS ANTICIPATED. SAFETY MEASURES IMPLEMENTED. CALL LIGHT WITHIN REACH. WILL ENDORSE TO NEXT SHIFT FOR MARISEL.
[2021-03-04] MEDS: METHADONE HCL 10 MG TABLET PO PRN (19:06)
--- NOTE | 2021-03-04 19:24 | NUR ---
RN NOTES PATIENT ALERT AND ORIENTED X4. ON ROOM AIR, NO SOB OR ANY RESPIRATORY DISTRESS. WITH RIGHT HAND #24 AND RIGHT UPPER ARM MIDLINE #18 WITH IV NS @ 100ML/S HR RUNNING, NO S/S OF INFILTRATION.. SAFETY MEASURES IMPLEMENTED. CALL LIGHT WITHIN REACH. WILL CONTINUE TO MONITOR.
[2021-03-04] MEDS: DAPTOMYCIN 500 MG in IV NS 0.9% 50 ML IV SCH (21:19)
[2021-03-04 22:05] VITALS: BP 109/68
[2021-03-05] MEDS: METHADONE HCL 10 MG TABLET PO PRN ×4 (00:12→09:03)
[2021-03-05] MEDS: MEROPENEM 500 MG in IV NS 0.9% 50 ML IV SCH (05:15)
[2021-03-05] MEDS: IV NS 0.9% 1,000 ML IV PRN (05:15)
[2021-03-05 05:43] VITALS: BP 112/68
[2021-03-05 06:27] LABS: BASOPHILS % (AUTO) 0.6 % (0.0-2.0); EOSINOPHILS % (AUTO) 3.1 % (0.0-6.0); HEMATOCRIT 26 % (33-45); HEMOGLOBIN 8.3 g/dL (11.5-14.8); MEAN CORPUSCULAR HGB CONC 33 g/dl (31.0-36.0); MEAN CORPUSCULAR VOLUME 81 fL (82-100); MONOCYTES # (AUTO) 0.6 /CMM (0.1-1.30); MONOCYTES % (AUTO) 8.6 % (2.0-12.0); NEUTROPHILS # (AUTO) 4.3 /CMM (1.8-8.9); NEUTROPHILS % (AUTO) 59.7 % (43.0-81.0); PLATELET COUNT (AUTO) 593 /CMM (150-450); RED BLOOD CELL COUNT(AUTO) 3.14 MIL/uL (4.0-5.2); WHITE BLOOD COUNT (AUTO) 7.2 K/uL (4.3-11.0)
[2021-03-05 07:12] LABS: CALCIUM, SERUM 8.5 mg/dL (8.5-10.1); CREATININE 0.6 mg/dL (0.6-1.3); MAGNESIUM 1.9 mg/dL (1.8-2.4); PHOSPHORUS 3.9 mg/dL (2.5-4.9); POTASSIUM 3.8 mmol/L (3.5-5.1)
--- NOTE | 2021-03-05 07:28 | NUR ---
RN NOTES PATIENT ALERT AND ORIENTED X4. ON ROOM AIR, NO SOB OR ANY RESPIRATORY DISTRESS. WITH RIGHT HAND #24 AND RIGHT UPPER ARM MIDLINE #18 WITH IV NS @ 100ML/S HR RUNNING, NO S/S OF INFILTRATION. PAIN MANAGEMENT PROVIDED METHADONE GIVEN X1 @ 0012 SAFETY MEASURES IMPLEMENTED. CALL LIGHT WITHIN REACH. WILL ENDORSE CARE.
[2021-03-05] MEDS: PANTOPRAZOLE 40 MG TABLET.DR PO SCH (07:51)
[2021-03-05 08:00] VITALS: BP 107/90
[2021-03-05 08:11] VITALS: BP 108/70
[2021-03-05] MEDS: CYCLOBENZAPRINE 10 MG TABLET PO SCH ×3 (08:44→17:24)
[2021-03-05] MEDS: GABAPENTIN 400 MG CAPSULE PO SCH ×3 (08:45→17:24)
[2021-03-05] MEDS: MUPIROCIN OINT 2% 22 GM TUBE TP SCH (09:02)
--- NOTE | 2021-03-05 09:46 | NUR ---
RN NOTES PATIENT IN BED ALERT AND ORIENTED X4. ABLE TO MAKE NEEDS KNOWN, ON ROOM AIR, NO SOB OR ANY RESPIRATORY DISTRESS NOTED AND NO C/O DIFFICULTY BREATHING , WITH RIGHT HAND #24 AND RIGHT UPPER ARM MIDLINE #18 WITH IV NS @ 100ML/S HR RUNNING, NO S/S OF INFILTRATION. PAIN MANAGEMENT PROVIDED METHADONE GIVEN X1 @ 0800, SAFETY MEASURES IMPLEMENTED. CALL LIGHT WITHIN REACH. WILL CONTINUE TO MONITOR, PROVIDED HOUSE PHONE TO TRY TO FIND A RIDE FOR DISCHARGE, WILL ENDORSE CARE.
[2021-03-05] MEDS ORDERED: SULFAMETH/TRIMETH 800/160 MG 1 UDTAB TABLET PO SCH (11:00)
[2021-03-05] MEDS ORDERED: FLUCONAZOLE (100 MG) 100 MG TABLET PO SCH (11:00)
--- NOTE | 2021-03-05 11:31 | NUR ---
RN NOTES DUE MEDS GIVEN
--- NOTE | 2021-03-05 12:35 | NUR ---
RN NOTES CULTURE REPORTS FROM [facility] , FORWARDED TO DR ANGELIQUE YOO , NO NEW ORDERS RECEIVED .
--- NOTE | 2021-03-05 15:37 | NUR ---
RN NOTES ATTEMPTED TO GIVE REPORT TO [facility] [phone], NO ONE IS PICKING UP TO ACCEPT REPORT. INSTRUCTED THEM TO CALL US BACK ONCE STAFF IS AVAILABLE TO ACCEPT REPORT. ADVISED PATIENT IS TO BE PICKED UP HERE BY AMBULANCE BET [phone]
[2021-03-05 16:00] VITALS: BP 114/71
--- NOTE | 2021-03-05 16:09 | NUR ---
RN NOTES REPORT GIVEN TO HERSON AYERS AT [facility].
--- NOTE | 2021-03-05 18:37 | NUR ---
MS RN NOTES [facility] ORDER TODAY IN STABLE CONDITION. PROVIDED DC INSTRUCTIONS, HEALTH TEACHINGS AND MED RECON LIST/PRESCRIPTION. IV ACCES RIGHT HAND AND AVI MIDLINE REMOVED. CATH TIPS COMPLETE, PRESSURE APPLIED X 10 MINUTES, NO BLEEDING, DRESSING IN PLACE. PHOTOS OF SKIN ISSUES TAKEN AND PLACED IN CHART. PM CARE AND PRESCRIBED WOUND TREATMENT DONE. PATIENT TO FOLLOW UP WITH PCP IN 1-2 WEEKS AND WILL MAKE OWN APPOINTMENT OR PER FACILITY PROTOCOL. ALL BELONGINGS CHECKED AND RETURNED. ALL PAPERWORKS SIGNED. PATIENT PICKED UP BY 2 AMBULANCE CREW AND WILL TRANSPORT TO FACILITY. REPORT GIVEN TO HERSON AT FACILITY EARLIER.
--- NOTE | 2021-03-05 18:56 | NUR ---
RN NOTES PATIENT NERVOUS AND FILLED WITH ANXIETY, ENCOURAGED TO BREATH DEEP AND RELAX, ALL IV SITES D/C, BANDAGE APPLIED VERY LITTLE BLEEDING APPARENT AT SITES, GAUZE / TAPE APPLIED AT BOTH SITES NO IRRITATION, NO REDNESS, NO INFLAMMATION AT EITHER SITE NOTED, EXPRESSED NEED FOR MORE NARCOTIC MEDICATIONS AND EXPLAINED ALL ORDERS WERE GIVEN, SAFE TRANSFER [place] WITH TWO rag collector TO [facility], ALL BELONGINGS WITH PATIENT ALL FORMS AND DOCUMENTATION SIGNED AND AUTHORIZED AND KUMAR OF $733.00 GIVEN TO PATIENT WITH RN WITNESS, CELL PHONE AND REAL ESTATE CLERK ALL SENT HOME WITH PATIENT.
== END 2021-03-05 19:18 | DRG 720 ==
LOC: TELE1 06:53 → MEDSG1 08:23
PROVIDERS: ADMIT Registered Nurse; ATTEND Registered Nurse
PROC: 0JBQ0ZZ Excision of Right Foot Subcutaneous Tissue and Fascia, Open Approach (ICD-10-PCS; principal; 2021-03-01)
PROC: 0S9F0ZX Drainage of Right Ankle Joint, Open Approach, Diagnostic (ICD-10-PCS; 2021-03-01)
PROC: 05H533Z Insertion of Infusion Device into Right Subclavian Vein, Percutaneous Approach (ICD-10-PCS; 2021-03-03)
PROC: B546ZZA Ultrasonography of Right Subclavian Vein, Guidance (ICD-10-PCS; 2021-03-03)
DX: A41.9 Sepsis, unspecified organism (principal); E87.1 Hypo-osmolality and hyponatremia; M00.9 Pyogenic arthritis, unspecified; E88.09 Other disorders of plasma-protein metabolism, not elsewhere classified; L03.115 Cellulitis of right lower limb; D64.9 Anemia, unspecified; F41.9 Anxiety disorder, unspecified; B37.89 Other sites of candidiasis; J44.9 Chronic obstructive pulmonary disease, unspecified; G89.29 Other chronic pain; I25.10 Atherosclerotic heart disease of native coronary artery without angina pectoris; G43.909 Migraine, unspecified, not intractable, without status migrainosus; M79.7 Fibromyalgia; Z88.0 Allergy status to penicillin; Z95.0 Presence of cardiac pacemaker; R74.8 Abnormal levels of other serum enzymes; D47.3 Essential (hemorrhagic) thrombocythemia; L02.415 Cutaneous abscess of right lower limb; Z91.81 History of falling; Z79.891 Long term (current) use of opiate analgesic; L97.319 Non-pressure chronic ulcer of right ankle with unspecified severity
CPT/HCPCS: 36415; 71045-TC; 73610-TC; 73700-TC; 80048-TC; 80053-TC; 80061-TC; 80076-TC; 83605-TC; 83735-TC; 84100-TC; 84439-TC; 84443-TC; 84484-TC; 84702-TC; 84703-TC; 85025-TC; 85652-TC; 86140-TC; 87040-TC; 87070-TC; 87081-TC; 93307-TC; 93971-TC; 97112-TC; 97116-TC; 97530-TC; A4217; A6253; A6407; G0378; J0878; J1100; J2185; J2250; J2704; J3010; J3475; J3490; J7030; J7040; J7060

== ENCOUNTER 2022-05-12 21:19 | Emergency (ER) | payer OTHER ==
[~2022-05-12 21:19] MED LIST: ACET1TAB23 PO; ACET325T53 PO; CYCL10TA9 PO; FLUC200T PO; GABA800T11 PO; METH10TA2 PO; SULF1TAB48 PO
--- NOTE | 2022-05-12 22:13 | NUR ---
LEFT BEFORE BEING SEEN
== END 2022-05-12 22:14 | disposition left against medical advice (07) ==
LOC: ER 21:25
DX: Z53.21 Procedure and treatment not carried out due to patient leaving prior to being seen by health care provider (principal)

== ENCOUNTER 2022-05-12 22:55 | Emergency (ER) | payer OTHER ==
[~2022-05-12] VITALS: Ht 185.4 cm; Wt 70.3 kg
--- NOTE | 2022-05-12 23:19 | NUR ---
BIBS C/O CELLULITS TO BILATERAL FEET XMONTHS PATIENT ALERT AND ORIENTED X3. AMBULATORY WITH NON LABORED BREATHING IN BED 01 ON MONITOR AND POX. PATIENT WAS SEEN BY MD AT TRIAGE.
[2022-05-12] MEDS ORDERED: CEFTRIAXONE 1GM BAG (ER ONLY) 50 ML IV ONE ×2 (23:30→23:38)
[2022-05-12] MEDS ORDERED: IV NS 0.9% 1,000 ML BAG IV ONE (23:30)
[2022-05-12] MEDS ORDERED: HYDROCODONE/APAP 5/325MG TABLET ONE (23:41)
--- NOTE | 2022-05-12 23:45 | NUR ---
20G IV LINE ESTABLISHED AT . BLOOD DRAWN AND SENT TO LAB.
[2022-05-12 23:57] LABS: BASOPHILS % (AUTO) 0.4 % (0.0-2.0); EOSINOPHILS % (AUTO) 1.9 % (0.0-6.0); HEMATOCRIT 30 % (33-45); LYMPHOCYTES # (AUTO) 1.9 K/uL (0.8-4.8); LYMPHOCYTES % (AUTO) 25.5 % (20.0-44.0); MEAN CORPUSCULAR HGB CONC 33 g/dl (31.0-36.0); MEAN CORPUSCULAR VOLUME 83 fL (82-100); MONOCYTES # (AUTO) 0.4 K/uL (0.1-1.30); MONOCYTES % (AUTO) 5.9 % (2.0-12.0); NEUTROPHILS % (AUTO) 66.3 % (43.0-81.0); PLATELET COUNT (AUTO) 531 K/uL (150-450); RED BLOOD CELL COUNT(AUTO) 3.68 MIL/uL (4.0-5.2); WHITE BLOOD COUNT (AUTO) 7.5 K/uL (4.3-11.0)
--- NOTE | 2022-05-13 00:06 | NUR ---
PT UNABLE TO PROVIDE URINE SAMPLE AT THIS TIME
--- NOTE | 2022-05-13 00:10 | NUR ---
XRAY AT BEDSIDE
--- NOTE | 2022-05-13 00:14 | NUR ---
COVID TEST COLLECTED AND SENT TO LAB
[2022-05-13 00:26] LABS: ALANINE AMINOTRANSFERASE 28 U/L (12-78); ALBUMIN 2.6 g/dL (3.4-5.0); ALKALINE PHOSPHATASE 84 U/L (46-116); ASPARTATE AMINOTRANSFERASE 24 U/L (15-37); BILIRUBIN,DIRECT 0.1 mg/dL (0.0-0.2); BILIRUBIN,TOTAL 0.2 mg/dL (0.2-1.0); CALCIUM, SERUM 8.9 mg/dL (8.5-10.1); CARBON DIOXIDE 31 mmol/L (21-32); CHLORIDE 102 mmol/L (98-107); CREATININE 0.9 mg/dL (0.6-1.3); GLUCOSE 103 mg/dL (74-106); POTASSIUM 3.7 mmol/L (3.5-5.1); SODIUM SERUM 137 mmol/L (136-145); TOTAL PROTEIN, SERUM 8.1 g/dL (6.4-8.2); UREA NITROGEN, BLOOD 7 mg/dL (7-18)
--- NOTE | 2022-05-13 01:29 | NUR ---
SPOKE TO GABRIELLA ADORNO, EXPECTING CALL BACK FROM ARDEN PETERSON MD.
--- NOTE | 2022-05-13 01:55 | NUR ---
DR CLEMONS ON THE PHONE WITH DR ALBRECHT AT [facility]
--- NOTE | 2022-05-13 02:02 | NUR ---
URINE COLLECTED AND SENT TO LAB
[2022-05-13 02:35] LABS: BILIRUBIN,URINE NEGATIVE (NEGATIVE); COLOR,URINE YELLOW (YELLOW); LEUKOCYTE ESTERASE ,URINE NEGATIVE (NEGATIVE); NITRITE, URINE NEGATIVE (NEGATIVE); PROTEIN,URINE NEGATIVE (NEGATIVE); UGLUCOSE NEGATIVE (NEGATIVE); UROBILINOGEN,URINE 0.2 EU/dL (0.2)
--- NOTE | 2022-05-13 04:00 | NUR ---
COVID RESULTS FAXED TO [phone]
--- NOTE | 2022-05-13 04:03 | NUR ---
PT SLEEPING COMFORTBALY BREATHING EVEN AND UNLABORED. REMAINS ON MONITOR AND V/S WNL
--- NOTE | 2022-05-13 04:28 | NUR ---
VEENA GOT ACCEPTED AT [facility] BY DR ALBRECHT, RM# [id number] [facility], # FOR REPORT: [phone]
--- NOTE | 2022-05-13 04:37 | NUR ---
[facility]: FIRST AVAILABLE ALS TRANSPO IS NOON. CALL AFTER [phone]
--- NOTE | 2022-05-13 04:50 | NUR ---
AUTH FOR TRANSFER: [id number] GABRIELLA MARIE WILL FAX THE AUTH TO [facility] AT [phone], ANISA
--- NOTE | 2022-05-13 05:08 | NUR ---
ALS TRANSPORTATION ARANGED BY [facility] WITH ETA: [phone]. C/Alva LANGE
--- NOTE | 2022-05-13 05:22 | NUR ---
LOUIE SMITH AT [facility] ABOUT THE ETA
[2022-05-13 06:37] VITALS: BP 105/61
[2022-05-13] MEDS ORDERED: HYDROCODONE/APAP 5/325MG TABLET ONE (06:56)
[2022-05-13] MEDS ORDERED: HYDROCODONE/APAP 5/325MG TABLET PO ONE ×2 (07:00)
--- NOTE | 2022-05-13 09:28 | NUR ---
THE PATIENT IS GETTING TRANSFERED TO [facility] ROOM 501. REPORT GIVEN TO NURSE CAMARILLO FROM [facility]. REPORT GIVEN TO AMBULANCE STAFF.
== END 2022-05-13 09:28 | disposition short-term general hospital (02) ==
LOC: ER 22:57
DX: L03.116 Cellulitis of left lower limb (principal); L03.115 Cellulitis of right lower limb; Q79.60 Ehlers-Danlos syndrome, unspecified; I25.2 Old myocardial infarction; J44.9 Chronic obstructive pulmonary disease, unspecified; Z88.1 Allergy status to other antibiotic agents; Z88.0 Allergy status to penicillin; Z88.8 Allergy status to other drugs, medicaments and biological substances; Z88.6 Allergy status to analgesic agent; Z91.041 Radiographic dye allergy status; Z95.0 Presence of cardiac pacemaker; Z20.822 Contact with and (suspected) exposure to COVID-19
CPT/HCPCS: 36415; 71045; 80048; 80076; 81003; 83605; 84145; 84484; 85025; 85730; 87040 ×2; 87086; 87426; 93005; 96365; 99285; C9803; J0696; J7030